=== PATIENT | female | born 2000 | race Caucasian/White ===

== ENCOUNTER → 2023-03-24 | Outpatient (CLI) | payer OTHER | LOC: M CARPUL 13:48 | PROVIDERS: ATTEND Family Medicine | DX: R06.00 Dyspnea, unspecified (principal); R91.8 Other nonspecific abnormal finding of lung field ==

== ENCOUNTER 2023-07-27 21:23 | Emergency (ER) | payer OTHER ==
[~2023-07-27] VITALS: Ht 167.6 cm; Wt 70.4 kg
[2023-07-28 02:08] VITALS: BP 117/64; TEMP 97.9; O2SAT 100
== END 2023-07-28 02:13 | disposition home or self-care (01) ==
LOC: M ED 21:23
DX: R07.89 Other chest pain (principal)

== ENCOUNTER → 2023-12-27 | Outpatient (CLI) | payer OTHER | LOC: M PLARAD 15:12 | PROVIDERS: ATTEND Internal Medicine Critical Care Medicine | DX: R91.8 Other nonspecific abnormal finding of lung field (principal) | CPT/HCPCS: 78815; A9552 ==

== ENCOUNTER → 2024-05-18 | Outpatient (CLI) | payer OTHER | LOC: M WHC 08:00 | PROVIDERS: ATTEND Student in an Organized Health Care Education/Training Program | DX: N63.11 Unspecified lump in the right breast, upper outer quadrant (principal) ==

== ENCOUNTER → 2025-01-17 | Outpatient (CLI) | payer OTHER ==
[~2025-01-17] MED LIST: FERR325T19; VITA100093
== END ==
LOC: M PLAIMG 13:09
PROVIDERS: ATTEND Internal Medicine Critical Care Medicine
DX: R91.8 Other nonspecific abnormal finding of lung field (principal)